=== PATIENT | female | born 1960 | race Caucasian/White ===

== ENCOUNTER 2023-09-24 01:01 | Emergency (ER) | payer BC ==
[2023-09-24] MEDS: Lidocaine 1% 5 ML VIAL INJECT ONE (01:26)
[2023-09-24] MEDS: Bacitracin Oint 1 GM U/D Packet TOP ONE (02:33)
[2023-09-24] MEDS: Cephalexin 500 MG Cap PO ONE (02:33)
== END 2023-09-24 02:41 | disposition home or self-care (01) ==
LOC: MW.ED 01:01
DX: S01.81XA Laceration without foreign body of other part of head, initial encounter (principal); Z75.8 Other problems related to medical facilities and other health care; W01.0XXA Fall on same level from slipping, tripping and stumbling without subsequent striking against object, initial encounter
CPT/HCPCS: 12014; 70140; 99283; A9270; J3490